=== PATIENT | female | born 1955 | race Caucasian/White ===

== ENCOUNTER 2017-03-10 09:37 | Day surgery (SDC) | payer BC ==
--- NOTE | ~2017-03-10 | OP ---
Record Of Operation [facility] [address] [place]. [address] NAME: MARIE DEGROOT : 59 STATUS : REG [facility]#: [id number] AGE: 61 ADM/REG DATE : 03/10/17 MR#: [id number] REPORT SERV DATE: 03/11/17 DICTATED BY: JOAQUÍN COTO DATE: 03/10/17 REPORT STATUS : Draft TRANSCRIBED BY: NEIL DATE: 03/10/17 DATE OF PROCEDURE: 03/10/2017 PREPROCEDURE DIAGNOSIS: Arthritis, diarrhea, possible Crohn's disease or possible inflammatory bowel disease. POSTPROCEDURE DIAGNOSIS: Clean colon, diverticulosis, and grade 1 internal hemorrhoids. PROCEDURE: Colonoscopy with cold biopsies; a total of 6 was taken for a segment of colon, right colon, transverse colon, left colon, and rectosigmoid. PROCEDURE IN DETAIL: The patient was taken to the endoscopy suite, positioned in the left lateral decubitus position. Informed consent was obtained followed by IV sedation delivered by BRISTLE MACHINE OPERATOR. Digital rectal exam was performed. Decreased sphincter tone. The scope was navigated without difficulty to the ileocecal valve where the appendiceal orifice was identified. Six cold biopsies were taken for a segment of colon, right colon, transverse colon, left colon, and rectosigmoid. Scattered diverticula were noted throughout the sigmoid colon and then rectum. The scope was not retroflexed since she had a colonoscopy within the last year which was done for screening purposes. She tolerated the procedure well. ADITI/NEIL Joaquín Coto M.D. / [id number] CC: Rafia Oconnell M.D. POONAM SOMAL, MD
[~2017-03-10 09:37] MED LIST: CRESTOR10 PO; CRESTOR5 MG PO; ENDOCET1 TA1 PO; FLONASE NAS; FOLIC PO; METHOC500B PO; METHOC750B; MINIVELLE1 EAC2 TOP; MTX2.5; NASONEX NAS; PRIN20 PO; UNITHROID50 MCG PO; VITA10 PO; VITAMIN B 2 PO; ZANAFLEX2 MG PO
== END 2017-03-10 23:59 | disposition home or self-care (01) ==
LOC: DMU 09:37
PROVIDERS: Surgery
PROC: 0DBN8ZX Excision of Sigmoid Colon, Via Natural or Artificial Opening Endoscopic, Diagnostic (ICD-10-PCS; 2017-03-10)
PROC: 0DBL8ZX Excision of Transverse Colon, Via Natural or Artificial Opening Endoscopic, Diagnostic (ICD-10-PCS; principal; 2017-03-10 11:00)
DX: K57.30 Diverticulosis of large intestine without perforation or abscess without bleeding (principal); K64.0 First degree hemorrhoids; E03.9 Hypothyroidism, unspecified; F41.9 Anxiety disorder, unspecified; Z88.0 Allergy status to penicillin; Z88.8 Allergy status to other drugs, medicaments and biological substances; Z90.49 Acquired absence of other specified parts of digestive tract; Z90.710 Acquired absence of both cervix and uterus; Z96.652 Presence of left artificial knee joint; Z98.890 Other specified postprocedural states; Z79.899 Other long term (current) drug therapy
CPT/HCPCS: 88305